=== PATIENT | female | born 1995 | race African-American/Black ===

== ENCOUNTER 2022-02-09 16:14 | Emergency (ER) | payer MEDICAID ==
[~2022-02-09] VITALS: Ht 162.6 cm; Wt 71.2 kg
[2022-02-09 18:07] VITALS: BP 134/81
[2022-02-09] MEDS ORDERED: KETOROLAC 30 MG/ML VIAL IM ONE (19:55)
[2022-02-09 21:17] LABS: BASOPHILS # (AUTO) 0.1 K/uL (0.00-0.22); BASOPHILS % (AUTO) 0.8 % (0.0-2.0); EOSINOPHILS % (AUTO) 0.3 % (0.0-4.0); HEMATOCRIT 38.5 % (36-48); HEMOGLOBIN 13.1 g/dL (12.0-16.0); LYMPHOCYTES # (AUTO) 1.9 K/uL (2.5-16.5); LYMPHOCYTES % (AUTO) 25.3 % (20.5-51.1); MEAN CORPUSCULAR HEMOGLOBIN 26 pg (27-31); MEAN CORPUSCULAR HGB CONC 34 g/dL (33-37); MEAN CORPUSCULAR VOLUME 76.7 fL (80-94); MONOCYTES # (AUTO) 0.6 K/uL (0.8-1.0); MONOCYTES % (AUTO) 7.8 % (1.7-9.3); NEUTROPHILS % (AUTO) 65.8 % (42.2-75.2); PLATELET COUNT (AUTO) 325 K/uL (140-450); RED BLOOD CELL COUNT(AUTO) 5.03 MIL/uL (4.20-5.40); RED CELL DISTRIBUTION WIDTH 13.6 % (11.6-13.7); WHITE BLOOD COUNT (AUTO) 7.5 K/uL (4.8-10.8)
[2022-02-09 21:51] LABS: ANION GAP 16.3 (8-16); CARBON DIOXIDE 24.6 mmol/L (21-32); CREATININE 0.8 mg/dL (0.6-1.3); POTASSIUM 3.9 mmol/L (3.5-5.1); TOTAL BILIRUBIN 0.4 mg/dL (0.0-1.0)
[2022-02-09] MEDS ORDERED: ACET-8386 PO (22:28)
[2022-02-09] MEDS ORDERED: NAPR-54 PO (22:28)
[2022-02-09 23:07] VITALS: BP 130/80
--- NOTE | 2022-02-09 23:07 | NUR ---
Patient discharged with v/s stable. Written and verbal after care instructions given PELVIC PAIN and explained. Patient alert, oriented and verbalized understanding of instructions. Ambulatory with steady gait. All questions addressed prior to discharge. ID band removed. Patient advised to follow up with PMD. Rx of HYDROCODONE/ACETAMINOPHEN AND NAPROXEN given.
== END 2022-02-09 23:07 | disposition home or self-care (01) ==
LOC: MED 16:14
DX: R10.31 Right lower quadrant pain (principal)
CPT/HCPCS: 36415; 76856; 80053; 81002; 81025; 83690; 85025; 93976; 96372; 99284; J1885; Q0092